=== PATIENT | female | born 1995 | race Caucasian/White ===

== ENCOUNTER 2017-02-08 21:30 | Emergency (ER) | payer MEDICAID ==
[2017-02-08] MEDS ORDERED: Albuterol 8 GM Inhaler INH ONE (21:53)
[2017-02-08] MEDS ORDERED: Codeine/guaiFENesin 100mg-10 MG/5 ML Soln 118 ML Bottle PO ONE (21:53)
--- NOTE | 2017-02-09 03:15 | ER ---
DATE SEEN: 02/08/2017 CHIEF COMPLAINT: Cough. HISTORY OF PRESENT ILLNESS: This is a 21-year-old female complaining of a cough for a week, associated with wheezing, productive, but no fever. Also has cold symptoms. SOCIAL HISTORY: Smoker. ALLERGIES: Amoxicillin. PHYSICAL EXAMINATION: GENERAL: Not in distress, afebrile. EARS, NOSE, AND THROAT: Negative. NECK: Supple with no lymphadenopathy. CHEST: End- expiratory rhonchi. CARDIOVASCULAR: Normal. IMPRESSION: 1. Acute bronchitis. 2. Tobacco abuse. PLAN: 1. Discussed smoking cessation. 2. Albuterol 1-2 puffs every 4 hours p.r.n. 3. Use Robitussin-AC. TIME SEEN: 9:45 p.m. /[id number] APOLINAR/BUDDY
[2017-02-09 03:49] VITALS: BP 115/68
== END 2017-02-08 22:07 | disposition home or self-care (01) ==
LOC: FB.ED 21:30
DX: J20.9 Acute bronchitis, unspecified (principal); Z72.0 Tobacco use; Z88.1 Allergy status to other antibiotic agents
CPT/HCPCS: 99282; A9270

== ENCOUNTER 2017-06-03 07:30 | Emergency (ER) | payer MEDICAID ==
--- NOTE | 2017-06-04 16:45 | ER ---
DATE SEEN: 06/03/2017 TIME SEEN: The patient was seen at 0815 hours. HISTORY OF PRESENT ILLNESS: This single, 1, para 1, smoking woman, with last menstrual period two weeks ago (approximately 1st day of the year) comes in with a history of onset 0400 hours, frequency, urgency, dysuria. She had a previous urinary tract infection approximately 16 months ago. SOCIAL HISTORY: Smokes 1/4 pack per day. Uses alcohol occasionally. PAST MEDICAL HISTORY: Thyroid cancer with total thyroidectomy, 09/02/2015, is on levothyroxine 250 mcg per day. ALLERGIES: Has seasonal allergies, (she is not aware of that but has marked shiners). Allergic to Amoxil. REVIEW OF SYSTEMS: Negative except for noted above. PHYSICAL EXAMINATION: VITAL SIGNS: Blood pressure 116, diastolic 68, oxygen saturation 100%, temperature is 97.5. The patient notes she has 3/10 abdominal discomfort. HEENT: Alert woman who has very marked shiners in her face and marked turbinate swelling. I note the nasal speech. She has prominent scar in the neck. It traverses hemicircle lower neck. No discomfort on palpation of the neck. No bruits. No masses. No tracheal tug. No tracheal deviation. No supraclavicular nodes. LUNGS: Clear to auscultation without rales, rhonchi, or wheezes. HEART: S1, S2. No murmur. Normal regular rate and rhythm. ABDOMEN: Soft. No guarding. No abdominal discomfort. No CVA percussion tenderness. No palpable abdominal masses. EXTREMITIES: Without abnormality. Deep tendon reflexes not performed. The patient has 5-10 WBCs, moderate leukocyte esterase, and moderate bacteria. Negative urine HCG. PLAN: 1. Start with Septra DS one b.i.d. six tablets, refill x1. 2. Pyridium 200 mg one t.i.d. six tablets. Refill x1. 3. [id number] suggestion to treat her allergic seasonal rhinitis, Zyrtec, [place], or Claritin 1 tablet each daily as needed. Follow up with doctor in a week if not improved or earlier if worse or follow up as needed. Culture pending. /[id number] LS/MODL
== END 2017-06-03 08:59 | disposition home or self-care (01) ==
LOC: FB.ED 07:30
DX: N39.0 Urinary tract infection, site not specified (principal); J30.2 Other seasonal allergic rhinitis; F17.210 Nicotine dependence, cigarettes, uncomplicated
CPT/HCPCS: 81001; 81025; 87086; 99283

== ENCOUNTER 2019-01-26 19:53 | Emergency (ER) | payer MEDICAID, OTHER ==
--- NOTE | 2019-01-26 20:44 | EDM.PDOC ---
ED HPI GENERAL MEDICAL PROBLEM - General Chief Complaint: Genitourinary Problem Stated Complaint: CRAMPING 11 WEEKS Time Seen by Provider: 01/26/19 20:10 Source of Information: Reports: Patient History Limitations: Reports: No Limitations - History of Present Illness INITIAL COMMENTS - FREE TEXT/NARRATIVE: 23-year-old female 1 para 1 AB 1 who is approximately 11 weeks by ultrasound performed at 6 weeks who presents complaining of lower abdominal/ pelvic cramping which began Ian and has continued through the weekend. She reports the pain seems to wax and wane and currently is a 7/10. It was a 5-6/10 earlier and seemed to worsen tonight and that prompted her to come to the emergency department for evaluation. She has had no vaginal bleeding. She has had a vaginal discharge but she considers that her normal discharge. No dysuria. No hematuria. She has been eating and drinking normally. She has had some nausea throughout her but no vomiting. There is no dizziness no history of trauma. There are no other associated signs or symptoms. There are no other modifying factors.. Her last sexual intercourse was 2-3 weeks ago. Onset: Other (01/24/2019) Duration: Getting Worse, Waxing/Waning Location: Reports: Abdomen (Lower abdomen), Pelvis Quality: Reports: Other (Cramping) Severity: Moderate Improves with: Reports: None Worsens with: Reports: None Context: Reports: Other (As above) Associated Symptoms: Reports: Nausea/Vomiting (But this has been chronically going on during her entire thus far. No vomiting.) Treatments PENSION CONSULTANT: Reports: Other (see below) (Nothing) lower abd Pain Score (Numeric/FACES): 8 - Related Data Allergies Allergy/AdvReac Type Severity Reaction Status Date / Time amoxicillin Allergy Hives Verified 01/26/19 20:01 Home Meds: Home Meds Levothyroxine Sodium [Synthroid] 250 mcg PO DAILY 02/09/17 [History] Phenazopyridine HCl [Pyridium] 200 mg PO TID #6 tablet 06/03/17 [Rx] Sulfamethoxazole/Trimethoprim [Septra DS] 1 each PO BID #6 tab 06/03/17 [Rx] Clindamycin Phosphate [Cleocin 2% Vaginal Crm] 1 dose VAG BEDTIME 7 Days #1 tube 01/26/19 [Rx] Past Medical History Respiratory History: Reports: Bronchitis, Recurrent INCOMING FREIGHT CLERK History: Reports: , Spontaneous , Other (See Below) Other INCOMING FREIGHT CLERK History: [id number] Oncologic (Cancer) History: Reports: Thyroid Dermatologic History: Reports: Other (See Below) Other Dermatologic History: granuloma annular - Past Surgical History Endocrine Surgical History: Reports: Thyroidectomy Other Endocrine Surgeries/Procedures: Thyroid cancer. Oncologic Surgical History: Reports: Other (See Below) Other Oncologic Surgeries/Procedures: thyroid ca with ?mets to lungs. Radiation tx. In remission Social & Family History - Family History Family Medical History: Noncontributory HEENT: Reports: None OBGYN: Reports: - Tobacco Use Smoking Status *Q: Former Smoker (She quit smoking when she found out she was ) - Caffeine Use Caffeine Use: Reports: Soda - Alcohol Use Alcohol Use History: No - Sexual History Sexual History: Reports: Sexually Active, Single Partner Other Sexual History Comment: Last sexual intercourse was 2-3 weeks ago. - Living Situation & Occupation Occupation: Employed ED ROS GENERAL - Review of Systems Review Of Systems: See Below Constitutional: Reports: No Symptoms HEENT: Reports: No Symptoms Respiratory: Reports: No Symptoms Cardiovascular: Reports: No Symptoms GI/Abdominal: Reports: Abdominal Pain (Pelvic cramping as above.), Nausea. Denies: Vomiting : Reports: Discharge (Physiologic). Denies: Dysuria, Flank Pain, Frequency, Hematuria, Urgency Musculoskeletal: Reports: No Symptoms Skin: Reports: No Symptoms Neurological: Reports: No Symptoms Psychiatric: Reports: Anxiety Hematologic/Lymphatic: Reports: No Symptoms Immunologic: Reports: No Symptoms ED EXAM, GI/ABD - Physical Exam Exam: See Below Exam Limited By: No Limitations General Appearance: Alert, WD/WN, No Apparent Distress, Anxious Eyes: Bilateral: Normal Appearance, EOMI Ears: Normal External Exam, Hearing Grossly Normal Nose: Normal Inspection, Normal Mucosa, No Blood Throat/Mouth: Normal Inspection, Normal Lips, Normal Oropharynx, Normal Voice, No Airway Compromise Head: Atraumatic, Normocephalic Neck: Normal Inspection, Supple, Non-Tender, Full Range of Motion Respiratory/Chest: No Respiratory Distress, Lungs Clear, Normal Breath Sounds, No Accessory Muscle Use, Chest Non-Tender Cardiovascular: Normal Peripheral Pulses, Regular Rate, Rhythm, No Edema, No Murmur GI/Abdominal Exam: Normal Bowel Sounds, Soft, No Mass, Tender (Mildly tender in suprapubic area. No masses. No rebound.). No: Rebound Back Exam: Normal Inspection, Full Range of Motion. No: CVA Tenderness (R), CVA Tenderness (L) Extremities: Normal Inspection, Normal Range of Motion, Non-Tender, No Pedal Edema, Normal Capillary Refill Neurological: Alert, Oriented, CN II-XII Intact, Normal Cognition, No Motor/ Sensory Deficits Psychiatric: Anxious Skin Exam: Warm, Dry, Intact, Normal Color, No Rash Course - Vital Signs Last Recorded V/S: Last Vital Signs Temp 36.6 C 01/26/19 19:53 Pulse 93 01/26/19 19:53 Resp 17 01/26/19 19:53 BP 131/85 01/26/19 19:53 Pulse Ox 100 01/26/19 19:53 - Orders/Labs/Meds Labs: Laboratory Tests 01/26/19 Range/Units 20:59 Urine Color Yellow (YELLOW) Urine Appearance Clear (CLEAR) Urine pH 6.5 (5.0-6.5) Ur Specific [place] 1.010 (1.010-1.025) Urine Protein Negative (NEGATIVE) mg/dL Urine Glucose (UA) Normal (NORMAL) mg/dL Urine Ketones Negative (NEGATIVE) mg/dL Urine Occult Blood Negative (NEGATIVE) Urine Nitrite Negative (NEGATIVE) Urine Bilirubin Negative (NEGATIVE) Urine Urobilinogen Normal (NEGATIVE) mg/dL Ur Leukocyte Esterase Negative (NEGATIVE) Urine RBC 0-5 (0-5) Urine WBC 0-5 (0-5) Ur Squamous Epith Cells Occasional (NS,R,O) Urine Bacteria Rare H (NS) - Re-Assessments/Exams Free Text/Narrative Re-Assessment/Exam: 01/26/19 22:26: Urinalysis was normal. The wet prep was positive for clue cells. She has remained vitally stable. I will treat the patient with clindamycin vaginal gel for bacterial vaginosis and she is to follow-up with her OB doctor tomorrow or Sunday. Precautions for coming back to the emergency Department were given. Departure - Departure Time of Disposition: 22:30 Disposition: Home, Self-Care 01 Condition: Good (Stable) Clinical Impression: Pelvic pain during in first trimester, antepartum, Bacterial vaginosis in - Discharge Information Prescriptions: Clindamycin Phosphate [Cleocin 2% Vaginal Crm] 1 dose VAG BEDTIME 7 Days #1 tube Instructions: Bacterial Vaginosis, [id number] Referrals: Jose Navarro MD [Primary Care Provider] - Forms: ED Department Discharge Additional Instructions: Your urine test was normal. You do have evidence of a bacterial overgrowth in your vagina called bacterial vaginosis. I have given you a prescription of clindamycin cream to use to treat this. You should rest. You should have pelvic rest. You should drink plenty of fluids. Follow-up with your OB doctor tomorrow or Sunday for recheck. Back to the emergency department for vaginal bleeding, fever, marked increase in pain or any other concerning sign or symptom.
[2019-01-27 00:08] VITALS: BP 111/72
== END 2019-01-26 22:40 | disposition home or self-care (01) ==
LOC: FB.ED 19:53
DX: O23.591 Infection of other part of genital tract in pregnancy, first trimester (principal); B96.89 Other specified bacterial agents as the cause of diseases classified elsewhere; Z3A.11 11 weeks gestation of pregnancy
CPT/HCPCS: 81001; 87210; 99283

== ENCOUNTER 2019-01-27 15:50 | Emergency (ER) | payer MEDICAID ==
--- NOTE | 2019-01-27 19:20 | EDM.PDOC ---
ED HPI GENERAL MEDICAL PROBLEM - General Stated Complaint: 11 WKS PREG SPOTTING Time Seen by Provider: 01/27/19 17:34 Source of Information: Reports: Patient History Limitations: Reports: No Limitations - History of Present Illness INITIAL COMMENTS - FREE TEXT/NARRATIVE: patient presents today with concern for spotting when she wipes her vaginal area. This was seen in the ER yesterday with lower abdominal cramping, and states she saw PCP in the office today but was told to come in if she started to bleed. She does not note any other symptoms. She is not having any dysuria, no abdominal pain, no change in bowel habits, no nausea or vomiting. She's had no fever, chills or sweats. She is a , with a 3-year-old son and her first was a miscarriage. Her blood type is A-. Her urinalysis was normal yesterday, and she has had 2 ultrasounds already this confirming intrauterine . She has not had to wear a pad, but primarily notices blood when she wiped. She was given a prescription for treatment for bacterial vaginosis yesterday, but is waiting for insurance approval. has not really tried anything for the cramping as she is only able to take Tylenol due to . - Related Data Allergies Allergy/AdvReac Type Severity Reaction Status Date / Time amoxicillin Allergy Hives Verified 01/26/19 20:01 Home Meds: Home Meds Levothyroxine Sodium [Synthroid] 250 mcg PO DAILY 02/09/17 [History] Phenazopyridine HCl [Pyridium] 200 mg PO TID #6 tablet 06/03/17 [Rx] Sulfamethoxazole/Trimethoprim [Septra DS] 1 each PO BID #6 tab 06/03/17 [Rx] Clindamycin Phosphate [Cleocin 2% Vaginal Crm] 1 dose VAG BEDTIME 7 Days #1 tube 01/26/19 [Rx] Past Medical History Respiratory History: Reports: Bronchitis, Recurrent RECREATION CLERK History: Reports: , Spontaneous , Other (See Below) Other RECREATION CLERK History: [id number] Oncologic (Cancer) History: Reports: Thyroid Dermatologic History: Reports: Other (See Below) Other Dermatologic History: granuloma annular - Past Surgical History Endocrine Surgical History: Reports: Thyroidectomy Other Endocrine Surgeries/Procedures: Thyroid cancer. Oncologic Surgical History: Reports: Other (See Below) Other Oncologic Surgeries/Procedures: thyroid ca with ?mets to lungs. Radiation tx. In remission Social & Family History - Family History Family Medical History: Noncontributory HEENT: Reports: None OBGYN: Reports: - Tobacco Use Smoking Status *Q: Current Some Day Smoker - Caffeine Use Caffeine Use: Reports: Soda - Alcohol Use Alcohol Use History: No - Recreational Drug Use Recreational Drug Use: No - Sexual History Sexual History: Reports: Sexually Active, Single Partner Other Sexual History Comment: Last sexual intercourse was 2-3 weeks ago. - Living Situation & Occupation Living situation: Reports: with Significant Other Occupation: Employed ED ROS GENERAL - Review of Systems Review Of Systems: ROS reveals no pertinent complaints other than HPI. ED EXAM, GENERAL - Physical Exam Exam: See Below Free Text/Narrative:: Gen.: Alert, very pleasant no acute distress. Throat is without erythema, mucous members are moist. Neck is supple and there is no cervical or supraclavicular lymphadenopathy. Lungs are clear throughout with no wheezes or crackles, heart is regular rate and rhythm. Pelvic exam shows normal external female genitalia with no blood noted in the vaginal vault. The cervix appears closed. Bimanual not completed. Abdominal exam shows no tenderness with just very minimal suprapubic discomfort with very deep palpation. Peripheral pulses + 2 in the upper and lower extremities and there is no lower extremity edema. Skin has no abnormal lesions or rashes. Course - Vital Signs Text/Narrative:: initial labs ordered-CBC, hCG. Patient's labs reviewed on her my health chart and had been performed very recently, with negative gonorrhea and chlamydia, syphilis, and HIV testing all performed just 9 days ago. reports her blood type is A-. has had ultrasound confirming intrauterine . Hemodynamically stable with a benign abdominal exam - Orders/Labs/Meds Orders: Active Orders 24 hr Category Date Time Status BLOOD BANK HOLD SPECIMEN [BBK] Stat Lab 01/27/19 17:15 Received Labs: Laboratory Tests 01/27/19 01/27/19 01/27/19 Range/Units 17:15 17:15 18:20 WBC 6.3 (4.5-12.0) X10-3/uL RBC 4.60 (3.23-5.20) x10(6)uL Hgb 14.0 (11.5-15.5) g/dL Hct 41.7 (30.0-51.3) % MCV 90.7 (80-96) fL MCH 30.4 (27.7-33.6) pg MCHC 33.6 (32.2-35.4) g/dL RDW 12.7 (11.5-15.5) % Plt Count 235 (125-369) X10(3)uL MPV 6.5 L (7.4-10.4) fL Neut % (Auto) 67.7 (46-82) % Lymph % (Auto) 24.6 (13-37) % [place] % (Auto) 5.8 (4-12) % Eos % (Auto) 1 (1.0-5.0) % Baso % (Auto) 1 (0-2) % Neut # (Auto) 4.3 (1.6-8.3) # Lymph # (Auto) 1.5 (0.6-5.0) # [place] # (Auto) 0.4 (0.0-1.3) # Eos # (Auto) 0.1 (0.0-0.8) # Baso # (Auto) 0.0 (0.0-0.2) # HCG, Quant 86718 (<5) mIU/mL Blood Type A NEGATIVE Rhogam Indicated Yes - Re-Assessments/Exams Free Text/Narrative Re-Assessment/Exam: 01/27/19 Sterile speculum exam completed, no signs of active bleeding and cervix appears closed. Bimanual was not completed as do not want to disturb the cervix in this situation. HCG returns around 12,000, which is appropriate for age. Outpatient ultrasound has been ordered, and recommended follow up with PCP in 2 days for repeat hCG. CBC normal. She has treatment for bacterial vaginosis , and other labs were just done 10 days ago so I do not think a repeat STD testing will get any benefit. We'll give Rhogam here given her negative blood type. discussed signs or symptoms which should prompt need for immediate return to the emergency room and all questions were answered. She is in agreement with this plan Departure - Departure Time of Disposition: 19:17 Disposition: Home, Self-Care 01 Clinical Impression: Vagina bleeding, Bacterial vaginosis in - Discharge Information *PRESCRIPTION DRUG MONITORING PROGRAM REVIEWED*: Not Applicable *COPY OF PRESCRIPTION DRUG MONITORING REPORT IN PATIENT JORGE A: Not Applicable Instructions: Rh0 [D] Immune Globulin injection, Vaginal Bleeding During , First Trimester Referrals: Kervin Huff MD [Primary Care Provider] - Additional Instructions: closed cervix today, no signs of active bleeding. Need repeat testing in 48 hours and US to determine cause of cramping --call PCP in AM with results UA clean yesterday very recent STD testing (01/17) w/ no new partner HCG [id number] recheck HCG in 48 hours recommend f/u US CBC within normal limits, no anemia, vitals stable bacterial vaginosis treatment as previously prescribed Rhogam given today - My Orders Last 24 Hours: My Active Orders 01/27/19 17:15 BLOOD BANK HOLD SPECIMEN [BBK] Stat - Assessment/Plan Last 24 Hours: My Active Orders 01/27/19 17:15 BLOOD BANK HOLD SPECIMEN [BBK] Stat
[2019-01-28 06:10] VITALS: BP 107/72; PULSE 91
== END 2019-01-27 19:30 | disposition home or self-care (01) ==
LOC: FB.ED 15:50
DX: O20.9 Hemorrhage in early pregnancy, unspecified (principal); O23.591 Infection of other part of genital tract in pregnancy, first trimester; B96.89 Other specified bacterial agents as the cause of diseases classified elsewhere; O99.331 Smoking (tobacco) complicating pregnancy, first trimester; F17.200 Nicotine dependence, unspecified, uncomplicated; Z88.1 Allergy status to other antibiotic agents; Z79.899 Other long term (current) drug therapy; Z85.850 Personal history of malignant neoplasm of thyroid; Z3A.11 11 weeks gestation of pregnancy
CPT/HCPCS: 36415; 84702; 85025; 86900; 86901; 96372; 99283; J2790

== ENCOUNTER 2019-02-07 15:17 | Emergency (ER) | payer MEDICAID ==
[2019-02-07] MEDS ORDERED: Sodium Chloride 0.9% 1,000 ML IV ONE (16:01)
--- NOTE | 2019-02-07 16:03 | EDM.PDOC ---
ED HPI GENERAL MEDICAL PROBLEM - General Stated Complaint: bleeding Time Seen by Provider: 02/07/19 15:17 Source of Information: Reports: Patient, Family History Limitations: Reports: No Limitations - History of Present Illness INITIAL COMMENTS - FREE TEXT/NARRATIVE: 23 y.o.w.f AB2 came to the ED with vag bleed for 2 days. Pt was dx'd with with miscarriage 2 days ago. She passes occ tissue and has intermittent Vag birgit. BP was 80/67 on arrival an she felt dizzy. No N/V/D BP 87/56 Pulse 120 temp 36.8 O2 sat 100% on RA Onset Date: 02/05/19 Onset Time: 07:00 Duration: Day(s):, Intermittent Location: Reports: Pelvis Quality: Reports: Burning, Dull Severity: Moderate Improves with: Reports: Rest Worsens with: Reports: Movement Context: Reports: Other (miscarriiage) Associated Symptoms: Reports: No Other Symptoms - Related Data Allergies Allergy/AdvReac Type Severity Reaction Status Date / Time amoxicillin Allergy Hives Verified 01/28/19 06:01 Home Meds: Home Meds Levothyroxine Sodium [Synthroid] 250 mcg PO DAILY 02/09/17 [History] Clindamycin Phosphate [Cleocin 2% Vaginal Crm] 1 dose VAG BEDTIME 7 Days #1 tube 01/26/19 [Rx] Past Medical History Respiratory History: Reports: Bronchitis, Recurrent INTERNATIONAL LOGISTICS ANALYST History: Reports: , Spontaneous , Other (See Below) Other INTERNATIONAL LOGISTICS ANALYST History: [id number] Oncologic (Cancer) History: Reports: Thyroid Dermatologic History: Reports: Other (See Below) Other Dermatologic History: granuloma annular - Past Surgical History Endocrine Surgical History: Reports: Thyroidectomy Other Endocrine Surgeries/Procedures: Thyroid cancer. Oncologic Surgical History: Reports: Other (See Below) Other Oncologic Surgeries/Procedures: thyroid ca with ?mets to lungs. Radiation tx. In remission Social & Family History - Family History Family Medical History: Noncontributory HEENT: Reports: None OBGYN: Reports: - Caffeine Use Caffeine Use: Reports: Soda - Sexual History Sexual History: Reports: Sexually Active, Single Partner Other Sexual History Comment: Last sexual intercourse was 2-3 weeks ago. - Living Situation & Occupation Living situation: Reports: with Significant Other Occupation: Employed ED ROS GENERAL - Review of Systems Review Of Systems: See Below Constitutional: Reports: No Symptoms HEENT: Reports: No Symptoms Respiratory: Reports: No Symptoms Cardiovascular: Reports: No Symptoms Endocrine: Reports: No Symptoms GI/Abdominal: Reports: No Symptoms : Reports: Other (vaginal bleed) Musculoskeletal: Reports: No Symptoms Skin: Reports: No Symptoms Neurological: Reports: No Symptoms Psychiatric: Reports: No Symptoms Hematologic/Lymphatic: Reports: No Symptoms Immunologic: Reports: No Symptoms ED EXAM - Physical Exam Exam: See Below Exam Limited By: No Limitations General Appearance: Alert, WD/WN, Mild Distress, Moderate Distress, Thin Eye Exam: Bilateral Eye: Normal Inspection Ears: Normal External Exam Nose: Normal Inspection Throat/Mouth: Normal Inspection Head: Atraumatic, Normocephalic Neck: Normal Inspection, Supple Respiratory/Chest: No Respiratory Distress Cardiovascular: Normal Peripheral Pulses, Regular Rate, Rhythm, No Edema GI/Abdominal Exam: Normal Bowel Sounds, Soft, Non-Tender, No Organomegaly, No Abnormal Bruit, No Mass, Pelvis Stable Rectal Exam: Deferred (Female) Exam: Normal Bimanual Exam, Vaginal Bleeding Back Exam: Normal Inspection Extremities: Normal Inspection, Normal Range of Motion Neurological: Alert, Oriented, CN II-XII Intact, Normal Cognition Psychiatric: Normal Affect, Normal Mood Skin Exam: Warm, Dry, Intact, Normal Color, No Rash Lymphatic: No Adenopathy Course - Vital Signs Text/Narrative:: 23 y.o.w.f AB2 came to the ED with vag bleed for 2 days. Pt was dx'd with with miscarriage 2 days ago. She passes occ tissue and has intermittent Vag birgit. BP was 80/67 on arrival an she felt dizzy. No N/V/D BP 87/56 Pulse 120 temp 36.8 O2 sat 100% on RA PE: WNWD WF in mild distress labs: CBC. BMP Nl Ca was 7.7 Impression: Vag bleed due to miscarriage. Tx: [id number] cc wide open 4.47 pm Consultation: Dr. Easton, INTERNATIONAL LOGISTICS ANALYST, [facility]: Transfer to [facility] ED. for OB eval Reexam Improved BP 110/76 Pulse 102 Plan: Transfer to [place] by EMS - Orders/Labs/Meds Orders: Active Orders 24 hr Category Date Time Status Pelvic Exam, Set Up [RC] ASDIRECTED Care 09/20/19 16:17 Active Labs: Laboratory Tests 02/07/19 02/07/19 Range/Units 16:20 16:20 WBC 8.4 (4.5-12.0) X10-3/uL RBC 4.70 (3.23-5.20) x10(6)uL Hgb 14.3 (11.5-15.5) g/dL Hct 43.1 (30.0-51.3) % MCV 91.8 (80-96) fL MCH 30.4 (27.7-33.6) pg MCHC 33.1 (32.2-35.4) g/dL RDW 12.9 (11.5-15.5) % Plt Count 220 (125-369) X10(3)uL MPV 6.7 L (7.4-10.4) fL Neut % (Auto) 83.5 H (46-82) % Lymph % (Auto) 11.3 L (13-37) % [place] % (Auto) 3.8 L (4-12) % Eos % (Auto) 1 (1.0-5.0) % Baso % (Auto) 1 (0-2) % Neut # (Auto) 7.0 (1.6-8.3) # Lymph # (Auto) 1.0 (0.6-5.0) # [place] # (Auto) 0.3 (0.0-1.3) # Eos # (Auto) 0.0 (0.0-0.8) # Baso # (Auto) 0.1 (0.0-0.2) # Sodium 143 (135-145) mmol/L Potassium 3.5 (3.5-5.3) mmol/L Chloride 104 (100-110) mmol/L Carbon Dioxide 26 (21-32) mmol/L BUN 5 L (7-18) mg/dL Creatinine 0.5 L (0.55-1.02) mg/dL Est Cr Clr Drug Dosing TNP Estimated GFR (MDRD) > 60 (>60) BUN/Creatinine Ratio 10.0 (9-20) Glucose 85 (80-116) mg/dL Calcium 7.7 L (8.6-10.2) mg/dL Meds: Medications Discontinued Medications Generic Name Dose Route Start Last Admin Trade Name Freq PRN Reason Stop Dose Admin Sodium Chloride 1,000 mls @ 999 mls/hr 02/07/19 16:01 Normal Saline IV 02/07/19 17:01 .BOLUS ONE Departure - Departure Time of Disposition: 17:11 Disposition: DC/Tfer to Acute Hospital 02 Condition: Good Clinical Impression: Vagina bleeding - Discharge Information Referrals: PCP,None [Primary Care Provider] - - My Orders Last 24 Hours: My Active Orders 02/07/19 16:17 Pelvic Exam, Set Up [RC] ASDIRECTED - Assessment/Plan Last 24 Hours: My Active Orders 02/07/19 16:17 Pelvic Exam, Set Up [RC] ASDIRECTED
[2019-02-07] MEDS ORDERED: Sodium Chloride 0.9% 1,000 ML IV SCH (17:15)
[2019-02-07 18:24] VITALS: BP 110/70; PULSE 102
== END 2019-02-07 17:30 ==
LOC: FB.ED 15:17
DX: N93.9 Abnormal uterine and vaginal bleeding, unspecified (principal); E03.9 Hypothyroidism, unspecified; Z88.1 Allergy status to other antibiotic agents; Z79.899 Other long term (current) drug therapy
CPT/HCPCS: 36415; 80048; 85025; 96360; 99284; J7030

== ENCOUNTER 2019-05-22 18:32 | Emergency (ER) | payer MEDICAID ==
[2019-05-22] MEDS ORDERED: Sulfamethoxazole/Trimethoprim 800-160 MG Tab PO ONE (18:33)
--- NOTE | 2019-05-22 19:20 | EDM.PDOC ---
ED HPI GENERAL MEDICAL PROBLEM - General Chief Complaint: ENT Problem Stated Complaint: FEVER, COUGHING Time Seen by Provider: 05/22/19 19:00 Source of Information: Reports: Patient History Limitations: Reports: No Limitations - History of Present Illness INITIAL COMMENTS - FREE TEXT/NARRATIVE: Ashley comes in with a 3 day hx of nasal and sinus congestion and pain, associated with some low grade fever, malaise, and occ cough. There is no dental or ear pain. She has been taking Tylenol Cold and Sinus formula with limited improvement. 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 Oncologic Surgical History: Reports: Other (See Below) Other Oncologic Surgeries/Procedures: thyroid ca with ?mets to lungs. Radiation tx. In remission Social & Family History - Family History Family Medical History: Noncontributory HEENT: Reports: None OBGYN: Reports: - Caffeine Use Caffeine Use: Reports: Soda - Sexual History Sexual History: Reports: Sexually Active, Single Partner Other Sexual History Comment: Last sexual intercourse was 2-3 weeks ago. - Living Situation & Occupation Living situation: Reports: with Significant Other Occupation: Employed ED ROS ENT - Review of Systems Review Of Systems: Comprehensive ROS is negative, except as noted in HPI. ED EXAM, ENT - Physical Exam Exam: See Below Exam Limited By: No Limitations General Appearance: Alert, WD/WN, No Apparent Distress Eye Exam: Bilateral Eye: EOMI, Normal Inspection, PERRL Ears: Normal External Exam, Normal TMs Nose: Nasal Discharge, Other (tenderness overlying malar surfaces with some infraorbital injection) Mouth/Throat: Normal Inspection, Normal Gums, Normal Lips, Normal Oropharynx, Normal Teeth Head: Normocephalic Neck: Normal Inspection, Supple, Non-Tender Respiratory/Chest: Lungs Clear, Normal Breath Sounds, Chest Non-Tender Cardiovascular: Regular Rate, Rhythm, No Murmur Back: Normal Inspection Extremities: Normal Inspection Neurological: Alert, Oriented, CN II-XII Intact, Normal Cognition, No Motor/ Sensory Deficits Psychiatric: Normal Affect, Normal Mood Skin: Warm, Dry, Intact, Normal Color, No Rash Lymphatic: No Adenopathy Course - Vital Signs Text/Narrative:: Ashley remained stable at the [facility] ED. No meds were administered. Departure - Departure Time of Disposition: 19:18 Disposition: Home, Self-Care 01 Condition: Fair Clinical Impression: Rhinosinusitis - Discharge Information *PRESCRIPTION DRUG MONITORING PROGRAM REVIEWED*: Not Applicable *COPY OF PRESCRIPTION DRUG MONITORING REPORT IN PATIENT JORGE A: Not Applicable Referrals: Kervin uHff MD [Primary Care Provider] - Forms: ED Department Discharge - Problem List & Annotations (1) Rhinosinusitis SNOMED Code(s): 675797731, 23143171, 755151109 Code(s): J32.9 - CHRONIC SINUSITIS, UNSPECIFIED Status: Acute Current Visit: Yes Annotation/Comment:: I dispensed Bactrim DS bid for 5 days. - Problem List Review Problem List Initiated/Reviewed/Updated: Yes - Assessment/Plan Plan: Follow up with PCP if needed.
[2019-05-22 19:40] VITALS: BP 112/70; PULSE 108
== END 2019-05-22 19:40 | disposition home or self-care (01) ==
LOC: FB.ED 18:32
DX: J32.9 Chronic sinusitis, unspecified (principal); Z85.9 Personal history of malignant neoplasm, unspecified; Z88.1 Allergy status to other antibiotic agents; Z79.899 Other long term (current) drug therapy
CPT/HCPCS: 99283; A9270-GY

== ENCOUNTER 2020-11-07 19:59 | Emergency (ER) | payer BC, MEDICAID ==
--- NOTE | 2020-11-07 20:15 | EDM.PDOC ---
ED HPI GENERAL MEDICAL PROBLEM - General Stated Complaint: LEFT WRIST LASCERATION Time Seen by Provider: 11/07/20 20:12 Source of Information: Reports: Patient History Limitations: Reports: No Limitations - History of Present Illness INITIAL COMMENTS - FREE TEXT/NARRATIVE: 25-year-old female who was working with her on a project at home. They were putting up drywall and the patient was using a utility knife to cut the drywall and the utility knife slipped and she cut her left volar wrist with the utility knife. There was some bleeding from the area. It has been controlled with direct pressure. She came immediately to the emergency department. This occurred approximate 7:45 PM. She does have pain in the area that is sharp and stinging pain that she rates as a 4/10. It did get a little bit worse after the nurse did cleaning of the area with normal saline. There are no other injuries. She has full function in the left hand and wrist. She also has full sensation in the left hand. There are no other associated signs or symptoms. There are no other modifying factors. 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.) L wrist Pain Score (Numeric/FACES): 2 - Related Data Allergies Allergy/AdvReac Type Severity Reaction Status Date / Time amoxicillin Allergy Hives Verified 11/07/20 20:11 Home Meds: Home Meds Levothyroxine Sodium [Synthroid] 250 mcg PO DAILY 02/09/17 [History] buPROPion [buPROPion XL] 150 mg PO BEDTIME 11/07/20 [History] hydrOXYzine HCL [Atarax] 25 mg PO QID PRN 11/07/20 [History] Past Medical History Respiratory History: Reports: Bronchitis, Recurrent 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 Radiation tx. In remission Social & Family History - Tobacco Use Tobacco Use Status *Q: Current Every Day Tobacco User - Caffeine Use Caffeine Use: Reports: None - Alcohol Use Alcohol Use History: Yes Alcohol Use Frequency: Socially (Occasionally.) - Sexual History Sexual History: Reports: Sexually Active, Single Partner Other Sexual History Comment: Last sexual intercourse was 2-3 weeks ago. - Living Situation & Occupation Living situation: Reports: with Significant Other Occupation: Employed Review of Systems - Review of Systems Review Of Systems: See Below Constitutional: Denies: Chills, Fever Eyes: Denies: Blurred Vision, Pain Ears: Denies: Dizziness, Pain Nose: Denies: Congestion, Pain Mouth/Throat: Denies: Muffled Voice, Painful Swallowing Respiratory: Denies: Shortness of Breath, Cough Cardiovascular: Denies: Chest Pain, Palpitations GI/Abdominal: Denies: Nausea, Vomiting Genitourinary: Denies: Dysuria, Hematuria Musculoskeletal: Reports: Other (Left wrist pain. Right hand dominant.) Skin: Reports: Wound. Denies: Rash Neurological: Denies: Confusion, Dizziness Psychiatric: Reports: Anxiety ED EXAM, GENERAL - Physical Exam Exam: See Below Exam Limited By: No Limitations General Appearance: Alert, WD/WN, Anxious, Mild Distress, Other (Nontoxic.) Eye Exam: Bilateral Eye: EOMI, Normal Inspection, PERRL Ears: Normal External Exam, Hearing Grossly Normal Ear Exam: Bilateral Ear: Auricle Normal Nose: Normal Inspection, Normal Mucosa, No Blood Throat/Mouth: Normal Lips, Normal Oropharynx, Normal Voice, No Airway Compromise Head: Atraumatic, Normocephalic Neck: Normal Inspection, Supple, Non-Tender, Full Range of Motion, Other (Well- healed scar in her anterior neck from her thyroid surgery.) Respiratory/Chest: No Respiratory Distress, Lungs Clear, Normal Breath Sounds, No Accessory Muscle Use, Chest Non-Tender Cardiovascular: Normal Peripheral Pulses, Regular Rate, Rhythm, No Murmur Peripheral Pulses: 2+: Radial (L), Radial (R) GI/Abdominal: Soft, Non-Tender Back Exam: Normal Inspection Extremities: Normal Range of Motion, No Pedal Edema, Normal Capillary Refill Neurological: Alert, Oriented, CN II-XII Intact, Normal Cognition Psychiatric: Anxious Skin Exam: Warm, Dry, Normal Color, No Rash, Wound/Incision (0.25 m laceration in the volar left wrist. It is superficial. There is no active bleeding.) Course - Vital Signs Last Recorded V/S: Last Vital Signs Temp 37.4 C 11/07/20 20:00 Pulse 102 H 11/07/20 20:00 Resp 18 11/07/20 20:00 BP 115/81 11/07/20 20:00 Pulse Ox 97 11/07/20 20:00 - Re-Assessments/Exams Free Text/Narrative Re-Assessment/Exam: 11/07/20 20:25: Small laceration to the left wrist that is 0.25 cm in length. It is nonbleeding at this time. It is nonsuturable I will have the nursing staff apply Steri-Strip to the area and a supportive type dressing with an Rajan wrap. I discussed all this with the patient and with her and they're in agreement with this plan. She should leave the Steri-Strips intact for 4-5 days. Precautions and reasons for return to the emergency department were discussed with the patient and with her while the patient was in the emergency department and were detailed in the patient's discharge instructions. Departure - Departure Time of Disposition: 20:35 Disposition: Home, Self-Care 01 Condition: Good Clinical Impression: Laceration of left wrist Qualifiers: Encounter type: initial encounter Qualified Code(s): S61.512A - Laceration without foreign body of left wrist, initial encounter - Discharge Information Instructions: Sterile Tape Wound Care, Laceration Care, Adult, [id number] Additional Instructions: Leave the Steri-Strips intact for the next 4-5 days possible. Keep the area covered for protection for the next few days as well. Leave the Rajan wrap and tach for the next 24 hours. Back to the emergency department for marked increase in pain, redness, increased swelling or any other concerning signs or symptoms. Sepsis Event Note (ED) - Focused Exam Vital Signs: Vital Signs Temp Pulse Resp BP Pulse Ox 11/07/20 20:00 37.4 C 102 H 18 115/81 97
[2020-11-07 20:53] VITALS: BP 108/72; PULSE 94
== END 2020-11-07 20:42 | disposition home or self-care (01) ==
LOC: FB.ED 19:59
DX: S61.512A Laceration without foreign body of left wrist, initial encounter (principal); E03.9 Hypothyroidism, unspecified; Z88.0 Allergy status to penicillin; Z79.899 Other long term (current) drug therapy; W26.0XXA Contact with knife, initial encounter
CPT/HCPCS: 99282

== ENCOUNTER 2022-03-16 20:38 | Emergency (ER) | payer BC, MEDICAID ==
[2022-03-16] MEDS ORDERED: Acetaminophen/Codeine 300-30 MG Tab PO ONE (20:39)
[2022-03-16 21:32] VITALS: BP 136/96; PULSE 101
== END 2022-03-16 21:25 | disposition home or self-care (01) ==
LOC: FB.ED 20:38
DX: K04.7 Periapical abscess without sinus (principal); Z88.0 Allergy status to penicillin
CPT/HCPCS: 99282; A9270

== ENCOUNTER 2024-02-23 23:59 | Emergency (ER) | payer BC ==
[2024-02-24 00:20] VITALS: BP 117/63; PULSE 93
[2024-02-24 00:37] LABS: BASOPHILS PERCENT AUTO 0.6 % (0.2-1.5); EOSINOPHILS ABSOLUTE AUTO 0.2 x10-3/uL (0.0-0.8); EOSINOPHILS PERCENT AUTO 2.8 % (0.6-8.1); HEMATOCRIT 42.9 % (34.2-48.2); HEMOGLOBIN 14.2 g/dL (11.4-15.5); LYMPHOCYTES ABSOLUTE AUTO 1.6 x10-3/uL (1.0-4.4); LYMPHOCYTES PERCENT AUTO 24.8 % (18.4-52.1); MEAN CORPUSCULAR HEMOGLOBIN 29.8 pg (23.9-33.9); MEAN CORPUSCULAR HGB CONC 33.1 g/dL (31.9-34.8); MEAN CORPUSCULAR VOLUME 90.1 fL (76.7-100.5); MONOCYTES ABSOLUTE AUTO 0.6 x10-3/uL (0.3-1.0); MONOCYTES PERCENT AUTO 9.5 % (4.4-15.7); NEUTROPHILS ABSOLUTE AUTO 3.9 x10-3/uL (1.5-6.3); NEUTROPHILS PERCENT AUTO 62.3 % (30.8-76.2); PLATELET COUNT,PLT 244 x10(3)uL (151-488); RED BLOOD CELL COUNT 4.77 x10(6)uL (3.60-5.20); RED CELL DISTRIBUTION WIDTH 12.7 % (12.3-16.5); WHITE BLOOD CELL COUNT,WBC 6.3 x10-3/uL (3.0-10.3)
[2024-02-24 00:43] LABS: BILIRUBIN,URINE SMALL (NEGATIVE); GLUCOSE,URINE NORMAL (NORMAL); KETONES,URINE NEGATIVE (NEGATIVE); LEUKOCYTE ESTERASE,URINE NEGATIVE (NEGATIVE); NITRITE,URINE NEGATIVE (NEGATIVE); OCCULT BLOOD,URINE NEGATIVE (NEGATIVE); PROTEIN,URINE NEGATIVE (NEGATIVE); UROBILINOGEN,URINE 1 mg/dL (NEGATIVE)
[2024-02-24 00:47] LABS: APPEARANCE,URINE SLIGHTLY CLOUDY (CLEAR); COLOR,URINE YELLOW (YELLOW)
[2024-02-24 00:57] LABS: ALANINE AMINOTRANSFERASE,ALT 16 U/L (12-36); ALBUMIN 3.5 g/dL (3.5-5.2); ALKALINE PHOSPHATASE 35 IU/L (56-112); ASPARTATE AMNIOTRANSFERASE,AST 18 IU/L (5-25); BILIRUBIN TOTAL 0.7 mg/dL (0.1-1.3); BLOOD UREA NITROGEN,BUN 8 mg/dL (7-18); BUN/CREATININE RATIO 11.4 (9-20); CARBON DIOXIDE,CO2 31 mmol/L (21-32); CHLORIDE,CL 102 mmol/L (100-110); CREATININE 0.7 mg/dL (0.55-1.02); EST CRCL DRUG DOSING (CG) 105.38 mL/min; ESTIMATED GFR 121 mL/min (>60); GLUCOSE RANDOM 84 mg/dL (80-116); POTASSIUM,K 3.3 mmol/L (3.5-5.3); SODIUM,NA 141 mmol/L (135-145)
[2024-02-24 01:00] LABS: CALCIUM 6.1 mg/dL (8.6-10.2)
== END 2024-02-24 01:24 | disposition home or self-care (01) ==
LOC: FB.ED 23:59
DX: K52.9 Noninfective gastroenteritis and colitis, unspecified (principal); Z86.16 Personal history of COVID-19; F17.210 Nicotine dependence, cigarettes, uncomplicated; J20.9 Acute bronchitis, unspecified; E05.90 Thyrotoxicosis, unspecified without thyrotoxic crisis or storm; Z79.890 Hormone replacement therapy; Z88.0 Allergy status to penicillin
CPT/HCPCS: 36415; 80053; 81003; 81025; 85025; 99284